=== PATIENT | female | born 1970 | race Caucasian/White ===

== ENCOUNTER 2019-07-13 06:11 | Emergency (ER) | payer MEDICARE, MEDICAID, SELFPAY ==
--- NOTE | ~2019-07-13 | XR_ITS ---
XR lumbar spine 2-3V DATE: 07/13/2019 07:01 INDICATION: Back pain TECHNIQUE: AP, lateral, coned lateral lumbosacral views COMPARISON: None FINDINGS: No fracture or bone destruction is evident. The included lower thoracic and lumbar pedicles are intact. Lumbar and lumbosacral interspaces are well preserved. The sacroiliac joints are normal. IMPRESSION: No significant abnormality Reviewed, dictated and finalized at location A. IMPRESSION: No significant abnormality
[2019-07-13 06:22] VITALS: BP 112/70; PULSE 87; RESP 16; TEMP 36.3; O2SAT 100
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
[2019-07-13] MEDS: IBUPROFEN 600 MG TABLET PO (06:39)
[2019-07-13] MEDS: CYCLOBENZAPRINE HCL 10 MG TABLET PO (06:41)
[2019-07-13 07:21] LABS: Add Urine Microscopic? YES; Appearance Urine Clear (Clear); Bacteria Urine Trace /hpf; Bilirubin Urine Negative (Negative); Blood Urine 1+ (Negative); Color Urine Yellow (Yellow); Glucose Urine UA Negative (Negative); Ketones Urine Negative (Negative); Leukocyte Esterase Ur Trace LEU/UL (Negative); Mucus Urine Few /lpf; Nitrate Urine Negative (Negative); Protein Urine 1+ mg/dL (Negative); Specific Grav Ur 1.026 (1.001-1.035); Squamous Epithelial Cell Urine Many /hpf (Few); Urobilinogen Urine Negative mg/dL (<2.0)
[2019-07-13 08:07] VITALS: BP 105/61; PULSE 67; RESP 20; O2SAT 97
== END 2019-07-13 08:09 | disposition home or self-care (01) ==
PROVIDERS: Emergency Provider General Practice
DX: S39.012A Strain of muscle, fascia and tendon of lower back, initial encounter (principal); F17.200 Nicotine dependence, unspecified, uncomplicated; R82.998 Other abnormal findings in urine; V43.53XA Car driver injured in collision with pick-up truck in traffic accident, initial encounter
CPT/HCPCS: 72100; 81001; 81025; 87086; 87088; 99283; A9270

== ENCOUNTER 2019-11-06 11:09 | Emergency (ER) | payer MEDICARE, MEDICAID, SELFPAY ==
[2019-11-06 11:12] VITALS: BP 101/56; PULSE 56; RESP 18; TEMP 36.7; O2SAT 99
--- NOTE | 2019-11-06 11:24 | PC.NURSE ---
Pt ambulatory to ED RM 3. Pt reports I didn't really want to come here, my dad made me. Father has left the facility, but told poultry farmer egg that the patient has a hx of bipolar d.o. and schizophrenia and has been off her medications. Pt is exhibiting paranoid behavior, states i don't feel safe being at the hosptial and I'm not going to put on a gown just to talk to someone .
--- NOTE | 2019-11-06 11:44 | ED.PSYCH ---
HPI - Psych General Chief Complaint: Psychiatric Symptoms <Brittney Brian MD - Last Filed: 11/10/19 06:55> Stated Complaint: request mental health help <Brittney Brian MD - Last Filed: 11/10/19 06:55> Time Seen by Provider: 11/06/19 11:29 <Brittney Brian MD - Last Filed: 11/10/19 06:55> History of Present Illness HPI Narrative: Patient brought into the ED by her father for psych issues. She is slow to speak, poor eye contact, delusional. She says she does not want to stay here in [facility] , she denies hallucinations and delusions, she denies suicidal and homicidal ideation. She keeps repeating that she has never had a woman physician before. She said she cannot stay here with all these women taking care of her. Her only surgery was a repair surgery after vaginal delivery. She denies smoking,, denies drug. She said she has not been sick recently. She said she had a headache when she came in but not now. <Brittney Brian MD - Last Filed: 11/10/19 06:55> MD complaint: altered mental status <Brittney Brian MD - Last Filed: 11/10/19 06:55> Related Data Home Medications: Home Medications Medication Instructions Recorded Confirmed levothyroxine 175 mcg PO DAILY 11/06/19 linaclotide [Linzess] 145 mcg PO USEASDIRECTD 11/06/19 lorazepam 1 mg PO BID PRN 11/06/19 quetiapine 100 mg PO HS 11/06/19 ziprasidone HCl [Geodon] 20 mg PO BID 11/06/19 <Brittney Brian MD - Last Filed: 11/10/19 06:55> Allergies/Adverse Reactions: Allergies Allergy/AdvReac Type Severity Reaction Status Date / Time No Known Allergies Allergy Unverified 11/06/19 11:34 <Brittney Brian MD - Last Filed: 11/10/19 06:55> Review of Systems Review of Systems: Narrative: CONSTITUTIONAL: Denies fever, chills, or sweats. EYES: Denies visual changes, redness, or discharge. ENT: Denies rhinorrhea, congestion, sore throat, or otalgia. CARDIOVASCULAR: Denies chest pain, palpitations, or edema. RESPIRATORY: Denies cough or dyspnea. GASTROINTESTINAL: Denies abdominal pain, nausea, vomiting, or diarrhea. GENITOURINARY: Denies dysuria or hematuria. SKIN: Denies rash or itching. MUSCULOSKELETAL: Denies back pain, joint pain, or myalgia. NEUROLOGIC: Denies headache, numbness, or weakness. PSYCHIATRIC: Denies anxiety or depression. <Brittney Brian MD - Last Filed: 11/10/19 06:55> [facility] Past Medical History Medical History: Medical History (Updated 11/06/19 @ 19:54 by Brittney Brian MD) Psychosis <Brittney Brian MD - Last Filed: 11/10/19 06:55> Social History Social History: Social History (Updated 11/06/19 @ 11:48 by Brittney Brian MD) Smoking status: Never smoker Alcohol intake: current Substance use: never Gender identity (if verbalized by the patient): Female <Brittney Brian MD - Last Filed: 11/10/19 06:55> Exam Const: General: no acute distress and alert <Brittney Brian MD - Last Filed: 11/10/19 06:55> Course Course Emergency Course: Patient comfortably laying on the bed had multiple minor complaints ,she states that her anxiety has much improved and she does feel comfortable going home. I did advise her to wait for the counselor for reevaluation. <Martin Corrales MD - Last Filed: 11/07/19 18:02> Patient's care turned over myself at shift change. Seen and evaluated by myself. Agree with initial H&P Patient currently being evaluated by [facility] crisis pyrometallurgical engineer. At this time it is felt that the patient requires inpatient treatment and petition was again filled out. Patient is currently paranoid states she has been out of her medication for the past 5 days. Concern of patient caring for herself Patient requesting her evening dose of medication. States is on Seroquel 100 mg. States she is on Geodon as well but in reviewing notes he had recently filled and secondary to a possible of QT prolongation together I will hold the Geodon. Patient is also on At
[2019-11-06 11:53] LABS: Basophils Percent Auto 0.9 % (0.2-1.2); Eosinophils Percent Auto 0.6 % (0-4.4); Hematocrit 34.4 % (37.0-47.0); Hemoglobin 11.5 g/dL (12.0-15.0); Lymphocytes Absolute Auto 1.12 K/mm3 (0.9-3.2); Lymphocytes Percent Auto 32.8 % (18.3-44.2); Mean Corpuscular HGB Conc 33.4 g/dl (32-36); Mean Corpuscular Volume 92.7 fl (80-100); Mean Platelet Volume 11.3 fl (7.4-10.4); Monocytes Absolute Auto 0.2 K/mm3 (0.1-0.6); Monocytes Percent Auto 6.7 % (2.6-8.5); Platelet Count Result 172 k/mm3 (150-375); Red Blood Count 3.71 M/mm3 (4.2-5.4); Red Cell Distribution Width 11.4 % (11.5-14.5); White Blood Count 3.4 K/mm3 (4.5-10.0)
--- NOTE | 2019-11-06 11:56 | PC.NURSE ---
PT ESCALATING WHEN ASKED TO REMOVE RINGS AND OTHER JEWELRY. I SPOKE WITH CHILD SUPPORT CASE OFFICER FRANCIS WHO HAS OKAYED PT TO KEEP HER NECKLACES, RINGS, AND GLASSES ON. EDP SHA INFORMED STATES THAT SHE WILL PLACE ORDER FOR HALDOL AND ATIVAN.
[2019-11-06 12:06] LABS: Ethanol < 10 mg/dL (<10)
[2019-11-06 12:07] LABS: Alanine Aminotransferase 11 U/L (4-35); Albumin Level 4.3 g/dL (3.5-5.1); Alkaline Phosphatase 66 U/L (38-126); Aspartate Amino Transferase 22 U/L (14-36); Bilirubin,Total 0.4 mg/dL (0.2-1.3); Blood Urea Nitrogen 7 mg/dL (7-17); Carbon Dioxide 28 mmol/L (22-30); Chloride 101 mmol/L (98-107); Estimated CRCL calculation 81 ml/min; Estimated Glomerular Filt Rate > 60; Glucose 105 mg/dL (65-105); Potassium 3.9 mmol/L (3.4-5.0); Sodium 137 mmol/L (137-145)
--- NOTE | 2019-11-06 12:09 | PC.NURSE ---
ERP VERBAL ORDER FOR 2MG IM ATIVAN AT THIS TIME FOR PT INCREASING ANXIETY LEVEL. LUNCH TRAY ORDERED AT MD DALTON'S REQUEST.
--- NOTE | 2019-11-06 12:18 | PC.NURSE ---
AFTER ASKING FOR ATIVAN, PT NOW REFUSING MEDS BECAUSE SHE STATES THAT SHE ONLY USES IT AT NIGHT.
--- NOTE | 2019-11-06 12:26 | PC.NURSE ---
PT OUT OF ROOM, ATTEMPTING TO LEAVE, GETTING VERBALLY AGGRESSIVE WITH STAFF STATING THAT WE'RE ALL A BUNCH OF KIDS. VERBAL ORDER FROM SHA TO GO AHEAD AND GIVE THE ATIVAN WELL 5MG HALDOL IM.
[2019-11-06] MEDS: HALOPERIDOL LACTATE 5 MG/ML VIAL (12:27)
[2019-11-06 12:35] LABS: Add Urine Microscopic? YES; Appearance Urine Clear (Clear); Bilirubin Urine Negative (Negative); Blood Urine 3+ (Negative); Color Urine Yellow (Yellow); Glucose Urine UA Negative (Negative); Ketones Urine Negative (Negative); Leukocyte Esterase Ur Negative LEU/UL (Negative); Mucus Urine Few /lpf; Nitrate Urine Negative (Negative); Protein Urine Negative (Negative); RBC Urine >75 /hpf (0-2); Specific Grav Ur 1.011 (1.001-1.035); Squamous Epithelial Cell Urine Rare /hpf (Few); Urobilinogen Urine Negative mg/dL (<2.0); WBC Urine 0-3 /hpf
[2019-11-06 12:37] LABS: Thyroid Stimulating Hormone < 0.015 uIU/mL (0.465-4.680)
[2019-11-06 12:41] LABS: Amphetamine Screen Urine Negative (Negative); Barbiturate Screen Urine Negative (Negative); Benzodiazepines Screen Urine Negative (Negative); Cannabinoid Screen Urine Negative (Negative); Cocaine Screen Urine Negative (Negative); Methadone Screen Urine Negative (Negative); Opiate Screen Urine Negative (Negative); Phencyclidine Screen Urine Negative (Negative)
--- NOTE | 2019-11-06 12:52 | PC.NURSE ---
FOOD TRAY HAS ARRIVED, PT EATING. VERBAL ORDER FOR 1G TYLENOL PO STAT FOR PT HEADACHE.
[2019-11-06] MEDS: ACETAMINOPHEN 500 MG TABLET 1000 MG PO (13:01)
[2019-11-06 14:54] LABS: Free T4 Free Thyroxine 1.43 ng/mL (0.78-2.19)
[2019-11-06] MEDS: LEVOTHYROXINE SODIUM 100 MCG, LEVOTHYROXINE SODIUM 75 MCG 175 MCG PO (15:08)
--- NOTE | 2019-11-06 15:18 | PC.NURSE ---
PT MEDICALLY CLEARED AT THIS TIME BY OSMAR DALTON.
--- NOTE | 2019-11-06 17:04 | PC.NURSE ---
CALLED FOR PT MEAL AT THIS TIME.
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
--- NOTE | 2019-11-06 18:01 | PC.NURSE ---
REP HERNANDEZ HAS ARRIVED FROM CRISIS FOR EVAL.
--- NOTE | 2019-11-06 18:43 | PC.NURSE ---
ROSIBEL FROM CRISIS HAS DECIDED THAT PT NEEDS TO BE PLACED, PT IS VOLUNTARY AT THIS TIME. SHE IS CALLING OUT TO SEE ABOUT PLACEMENT.
--- NOTE | 2019-11-06 19:09 | PC.NURSE ---
REPORT GIVEN TO MELISA MEDRANO AT THIS TIME, SHE HAS ASSUMED PT CARE.
[2019-11-06 20:15] VITALS: BP 99/70; PULSE 65; RESP 15; TEMP 36.9; O2SAT 100
--- NOTE | 2019-11-06 21:05 | PC.NURSE ---
Spoke with Shirley from [facility], no beds at this time but recall at 09:15 for possible openings
[2019-11-06] MEDS: QUEtiapine FUMARATE 100 MG TABLET PO (22:51)
[2019-11-06] MEDS: LORazepam 1 MG TABLET PO (23:04)
[2019-11-07 02:00] VITALS: BP 102/63; PULSE 68; RESP 18; TEMP 36.8; O2SAT 100
[2019-11-07] MEDS: LORazepam 1 MG TABLET PO ×2 (03:11→22:51)
[2019-11-07] MEDS: NICOTINE (*PBKC) 14 MG PATCH 1 PATCH TRANSDERM ×2 (03:11→23:00)
--- NOTE | 2019-11-07 03:16 | PC.NURSE ---
0300 patient anxious attempting to leave room to get fresh air patient reminded that she is to stay in room- Dr Quinonez made aware-
--- NOTE | 2019-11-07 03:37 | PC.NURSE ---
Patient agitated, wants to walk around the ER/or go outside -explained that she was unable to do either of those things. Then patient started c/o that I'm all bound up inside and I need something to make me go Patient states that it has been 3 days for last BM but I haven't been eating . Patient stating that her belly hurts Patient continues to wear her sunglasses, all her jewelry and hair ties (ok'd per day shift)
[2019-11-07] MEDS: MAGNESIUM CITRATE 300 ML BTL PO (03:49)
--- NOTE | 2019-11-07 06:10 | PC.NURSE ---
Recieved call from [facility]-they said they faxed for additional information (fax never received) they will refax needed list
--- NOTE | 2019-11-07 06:59 | PC.NURSE ---
Refaxed information that [facility] required
[2019-11-07 07:45] VITALS: BP 117/58; PULSE 86; RESP 16; TEMP 37; O2SAT 100
[2019-11-07] MEDS: DICYCLOMINE HCL 10 MG CAPSULE 20 MG PO (08:02)
--- NOTE | 2019-11-07 08:39 | PC.NURSE ---
PT IS REFUSING THE EKG THAT [facility] IS REQUESTING. PT WAS MADE AWARE THAT THIS REFUSAL WILL DELAY HER POTENTIAL ACCEPTANCE AND TRANSFER TO FACILITY
[2019-11-07 08:55] LABS: Magnesium 2.4 mg/dL (1.6-2.3)
[2019-11-07] MEDS: LEVOTHYROXINE SODIUM 100 MCG, LEVOTHYROXINE SODIUM 75 MCG 175 MCG PO (11:00)
[2019-11-07] MEDS: NICOTINE (*PBKC) 14 MG PATCH 1 PATCH (13:08)
[2019-11-07] MEDS: MAGNESIUM HYDROXIDE SUSP 30 ML UDC PO (13:08)
[2019-11-07 14:00] VITALS: BP 109/69; PULSE 58; RESP 16; TEMP 37.1; O2SAT 98
--- NOTE | 2019-11-07 19:37 | PC.NURSE ---
Assumed care of pt from MELISA Mccormick. Pt currently being evaluated by Aicha.
--- NOTE | 2019-11-07 20:42 | PC.NURSE ---
report given to juvenal Watson.
--- NOTE | 2019-11-07 20:45 | PC.NURSE ---
Patient moved into room 15. Patient report received-assumed care. Sitter at doorway. Patient not happy about her new room
[2019-11-07] MEDS: QUEtiapine FUMARATE 100 MG TABLET PO (22:51)
[2019-11-08 01:32] VITALS: BP 101/59; PULSE 83; RESP 18; TEMP 36.7; O2SAT 99
[2019-11-08 07:53] VITALS: BP 100/68; PULSE 92; RESP 18; TEMP 36.8; O2SAT 99
--- NOTE | 2019-11-08 07:54 | PC.NURSE ---
Assumed care of pt from Shirley. Pt resting on stretcher. Sitter at bedside
--- NOTE | 2019-11-08 07:55 | PC.NURSE ---
Stefanie called and asked for EKG. Pt adamantly refusing EKG stating theres nothing wrong with my heart, I dont need it I explained that this facility will not take her without it and she was ok with that.
[2019-11-08] MEDS: LEVOTHYROXINE SODIUM 100 MCG, LEVOTHYROXINE SODIUM 75 MCG 175 MCG PO (09:01)
[2019-11-08 11:22] VITALS: BP 100/66; PULSE 76; RESP 17; TEMP 36.9; O2SAT 99
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
--- NOTE | 2019-11-08 15:38 | ECG_ITS ---
Measurements Intervals [place] Rate: 78 P: 54 MI: 146 QRS: 14 QRSD: 85 T: 29 QT: 373 QTc: 427 Interpretive Statements SINUS RHYTHM MINIMAL Q WAVES- HIGH LATERAL LEADS BORDERLINE ECG Electronically Signed On 11-08-2019 15:50:48 CDT by Antony Ricks D.O.
[2019-11-08 17:02] VITALS: BP 101/71; PULSE 87; RESP 18; TEMP 37.2; O2SAT 100
--- NOTE | 2019-11-08 17:12 | PC.NURSE ---
EKG and VS faxed to [facility] per their request.
--- NOTE | 2019-11-08 19:48 | PC.NURSE ---
Pt out in hallway, talking to the sitter. Told patient she needed to go back into the room. she stated she needed to use the bathroom. Told patient for her safety, someone needed to stand with foot in door for safety. well, i can just hold it for 14 days, or I will pee on the l floor .
--- NOTE | 2019-11-08 19:52 | PC.NURSE ---
Talked to [facility] psych unit. They stated that they had patients packet but have yet to review it. They will call us when they do.
[2019-11-08] MEDS: LORazepam 1 MG TABLET PO (22:04)
[2019-11-08] MEDS: QUEtiapine FUMARATE 100 MG TABLET PO (23:06)
--- NOTE | 2019-11-08 23:32 | PC.NURSE ---
This nurse called Crisis and spoke with Zamzam, and informed her that the patient needs a new involuntary form filled out on patient. Zamzam stated she will have the workers' compensation commissioner who is coming out to evaluate another patient, she will have him fill one out on the patient as well. workforce development program director notified.
--- NOTE | 2019-11-08 23:54 | PC.NURSE ---
Received report from MELISA Garcia. Assumed care of patient at this time.
--- NOTE | 2019-11-09 01:42 | PC.NURSE ---
Re-faxed patient's involuntary form to [facility] at this time.
--- NOTE | 2019-11-09 05:43 | PC.NURSE ---
Patient attempted to leave ED through ambulance doors. Patient escorted back to room by dictaphone technician. Security called. Patient back in room. Sitter at bedside. ERP Dr. Diaz notified.
--- NOTE | 2019-11-09 06:20 | PC.NURSE ---
Patient refusing repeat VS.
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
[2019-11-09] MEDS: HALOPERIDOL LACTATE 5 MG/ML VIAL IM (07:17)
[2019-11-09] MEDS: diphenhydrAMINE HCl INJ 50 MG/ML VIAL 25 MG IM (07:17)
--- NOTE | 2019-11-09 07:26 | PC.NURSE ---
Patient report given to MELISA Christianson.
--- NOTE | 2019-11-09 07:38 | PC.NURSE ---
Called for breakfast tray.
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
--- NOTE | 2019-11-09 09:01 | PC.NURSE ---
Aci[facility] called asked to refax information to [facility]. was accepted 11/07/2019 but no beds available. [facility] advised they would call back when they have a room and have not called the ED yet. Faxed information to [facility].
--- NOTE | 2019-11-09 09:04 | PC.NURSE ---
Pt. refused vitals at this time. Currently combative. Sitter and security at bedside.
[2019-11-09 09:06] VITALS: RESP 18
[2019-11-09 11:19] VITALS: BP 102/63; PULSE 52; RESP 14; TEMP 37.1; O2SAT 97
--- NOTE | 2019-11-09 16:24 | PC.NURSE ---
1530 spoke with pts father on the phone and he knows she is going to [facility] he is not happy about it reassured him she would get tx there she needed [facility] arrived to transport pt all pt belongs and her jewelry sent with pt to [facility]
== END 2019-11-09 16:30 ==
PROVIDERS: Emergency Medicine; Family Medicine; Emergency Provider Emergency Medicine
DX: F29 Unspecified psychosis not due to a substance or known physiological condition (principal); Z79.899 Other long term (current) drug therapy; R94.31 Abnormal electrocardiogram [ECG] [EKG]
CPT/HCPCS: 36415; 80053; 80307; 81001; 81025; 83735; 84439; 84443; 85025; 93005; 96372; 99285; A9270; J1200; J1630; J2060

== ENCOUNTER 2022-01-15 15:21 | Emergency (ER) | payer OTHER, SELFPAY ==
[2022-01-15 15:33] VITALS: BP 102/71; PULSE 101; RESP 18; TEMP 36.6; O2SAT 100
--- NOTE | 2022-01-15 16:11 | ED.FEMALEGU ---
HPI - Female Genitourinary General Chief complaint: Urogenital-Female Stated complaint: uti Time Seen by Provider: 01/15/22 16:27 Source: patient and RN notes reviewed Mode of arrival: ambulatory Limitations: no limitations History of Present Illness HPI Narrative: 51-year-old female presents with concern for urinary tract infection. She reports today she began having dysuria, frequency, urgency, mild low back pain. She reports she has been drinking a lot of caffeine. She reports she has had an urinary tract infection in May and was told to cut down on those things. She denies fever, body aches, chills, sweats, nausea, vomiting. MD elicited complaint: UTI Related Data Home Medications Medication Instructions Recorded Confirmed levothyroxine 175 mcg tablet 175 mcg PO DAILY 11/06/19 linaclotide 145 mcg capsule 145 mcg PO USEASDIRECTD 11/06/19 (Linzess) lorazepam 0.5 mg tablet 1 mg PO BID PRN Anxiety 11/06/19 quetiapine 100 mg tablet 100 mg PO HS 11/06/19 ziprasidone HCl 20 mg capsule 20 mg PO BID 11/06/19 (Geodon) Allergies Allergy/AdvReac Type Severity Reaction Status Date / Time No Known Allergies Allergy Unverified 12/05/19 09:34 Review of Systems Review of Systems: CONSTITUTIONAL: Denies malaise, chills, sweats, or fever. CARDIOVASCULAR: Denies chest pain, palpitations, or edema. RESPIRATORY: Denies cough or dyspnea. GASTROINTESTINAL: Denies abdominal pain, nausea, vomiting, diarrhea GENITOURINARY: Reports dysuria, frequency, urgency, suprapubic pressure. Denies flank pain or hematuria. SKIN: Denies rash or itching. MUSCULOSKELETAL: Denies back pain or myalgia. All systems reviewed & are unremarkable except as noted in HPI and below PMFSH Past Medical History Medical History (Updated 01/15/22 @ 16:34 by Estrella Leo NP) Psychosis Family History Family History (System 12/05/19 @ 09:34 by Melodie Gan) Mother Diabetes mellitus Hypertension Cerebrovascular accident Father Cerebrovascular accident Grandparent Carcinoma of colon Family history of lung cancer Family history of malignant neoplasm of brain Family history of colonic diverticulitis Social History Social History (System 12/05/19 @ 09:34 by Melodie R. Vandever) Smoking status: Never smoker Second hand tobacco smoke exposure: No Alcohol intake: current Substance use: never Gender identity (if verbalized by the patient): Female Comments At time of signature, agree with nursing past medical, surgical, social and family history. There is no relevant family history pertinent to the presenting complaint Exam Narrative: GENERAL: Well-appearing, well-nourished, and in no acute distress. HEAD: Normocephalic. EYES: PERRLA, conjunctivae clear. NECK: Supple. No lymphadenopathy CHEST: Clear to auscultation. No respiratory distress. HEART: Regular rate and rhythm. ABDOMEN: Soft, nontender upon palpation, nondistended, normal active bowel sounds, no palpable or pulsatile masses, no guarding. No CVA tenderness SKIN: Warm, dry, no rash. NEURO: Alert and oriented x3. PSYCH: Normal mood and affect Course Course Emergency Course: Patient is aware of diagnosis, understands and agrees to treatment plan. Anticipatory guidance given. Patient agrees to follow-up as directed and is aware of reasons to seek care at the emergency department. Portions of this record may have been created with voice recognition software Level of Care: Express Care Visit Vital Signs Vital signs: Vital Signs Temperature 97.8 F 01/15/22 15:33 Pulse Rate 101 H 01/15/22 15:33 Respiratory Rate 18 01/15/22 15:33 Blood Pressure 102/71 01/15/22 15:33 Pulse Oximetry 100 01/15/22 15:33 Oxygen Delivery Room Air 01/15/22 15:33 Temperature 97.8 F 01/15/22 15:33 Pulse Rate 101 H 01/15/22 15:33 Respiratory Rate 18 01/15/22 15:33 Blood Pressure 102/71 01/15/22 15:33 Pulse Oximetry 100 01/15/22
== END 2022-01-15 16:38 | disposition home or self-care (01) ==
PROVIDERS: Emergency Provider Nurse Practitioner
DX: N39.0 Urinary tract infection, site not specified (principal)
CPT/HCPCS: 81003; 87077; 87086; 87186; 99213; G0463

== ENCOUNTER 2022-07-15 16:20 | Outpatient (CLI) | payer OTHER, SELFPAY ==
[2022-07-15 18:06] LABS: Eosinophils Absolute Auto 0.1 K/mm3 (0-0.3); Eosinophils Percent Auto 1.5 % (0-4.4); Hematocrit 35.1 % (37.0-47.0); Hemoglobin 11.1 g/dL (12.0-15.0); Immature Granulocyte Absolute 0.01 K/mm3 (0.00-0.031); Immature Granulocyte Percent A 0.3 % (0-0.5); Lymphocytes Absolute Auto 2.14 K/mm3 (0.9-3.2); Lymphocytes Percent Auto 54.9 % (18.3-44.2); Mean Corpuscular HGB Conc 31.6 g/dl (32-36); Mean Corpuscular Volume 91.6 fl (80-100); Mean Platelet Volume 11.3 fl (7.4-10.4); Monocytes Absolute Auto 0.3 K/mm3 (0.1-0.6); Monocytes Percent Auto 7.2 % (2.6-8.5); Neutrophils Absolute Auto 1.4 K/mm3 (1.3-6.7); Neutrophils Percent Auto 35.1 % (45.5-73.1); Platelet Count Result 215 k/mm3 (150-375); Red Blood Count 3.83 M/mm3 (4.2-5.4); Red Cell Distribution Width 12.7 % (11.5-14.5); White Blood Count 3.9 K/mm3 (4.5-10.0)
[2022-07-15 18:22] LABS: Alanine Aminotransferase 15 U/L (6-35); Albumin Level 4.3 g/dL (3.5-5.1); Alkaline Phosphatase 65 U/L (38-126); Anion Gap 3 mmol/L (8-16); Aspartate Amino Transferase 24 U/L (14-36); Bilirubin,Total 0.4 mg/dL (0.2-1.3); Blood Urea Nitrogen 10 mg/dL (7-17); Calcium 8.9 mg/dL (8.4-10.2); Carbon Dioxide 29 mmol/L (22-30); Chloride 100 mmol/L (98-107); Estimated Glomerular Filt Rate > 60; Glucose 107 mg/dL (65-110); Potassium 4.3 mmol/L (3.4-5.0); Sodium 132 mmol/L (137-145)
[2022-07-21 09:43] LABS: Carbamazepine Tegretol <0.2 mcg/mL (4.0-12.0)
== END 2022-07-15 16:21 | disposition home or self-care (01) ==
PROVIDERS: Visit Provider Internal Medicine Pulmonary Disease
DX: F25.9 Schizoaffective disorder, unspecified (principal)
CPT/HCPCS: 36415; 80053; 80156; 85025

== ENCOUNTER 2022-10-08 16:41 | Outpatient (CLI) | payer OTHER, SELFPAY ==
[2022-10-08 17:09] LABS: Basophils Percent Auto 1.5 % (0.2-1.2); Eosinophils Percent Auto 1.2 % (0-4.4); Hematocrit 31.9 % (37.0-47.0); Hemoglobin 10.1 g/dL (12.0-15.0); Lymphocytes Percent Auto 34.6 % (18.3-44.2); Mean Corpuscular HGB Conc 31.7 g/dl (32-36); Mean Corpuscular Hemoglobin 29.1 pg (26-34); Mean Corpuscular Volume 91.9 fl (80-100); Mean Platelet Volume 10.9 fl (7.4-10.4); Monocytes Absolute Auto 0.4 K/mm3 (0.1-0.6); Monocytes Percent Auto 13.8 % (2.6-8.5); Neutrophils Absolute Auto 1.3 K/mm3 (1.3-6.7); Neutrophils Percent Auto 48.9 % (45.5-73.1); Platelet Count Result 149 k/mm3 (150-375); Red Blood Count 3.47 M/mm3 (4.2-5.4); Red Cell Distribution Width 12.7 % (11.5-14.5); White Blood Count 2.6 K/mm3 (4.5-10.0)
[2022-10-08 17:18] LABS: Alanine Aminotransferase 16 U/L (6-35); Alkaline Phosphatase 70 U/L (38-126); Anion Gap 6 mmol/L (8-16); Aspartate Amino Transferase 24 U/L (14-36); Bilirubin,Total 0.2 mg/dL (0.2-1.3); Blood Urea Nitrogen 8 mg/dL (7-17); Calcium 8.5 mg/dL (8.4-10.2); Carbon Dioxide 25 mmol/L (22-30); Chloride 103 mmol/L (98-107); Cholesterol 152 mg/dL (0-200); Estimated Glomerular Filt Rate > 60; Glucose 104 mg/dL (65-110); HDL Direct 59 mg/dL; Potassium 3.8 mmol/L (3.4-5.0); Sodium 134 mmol/L (137-145); Triglycerides 97 mg/dL (<150)
[2022-10-08 17:29] LABS: LDL Cholesterol Direct 66 mg/dL
[2022-10-08 17:48] LABS: Thyroid Stimulating Hormone < 0.015 uIU/mL (0.465-4.680)
== END 2022-10-08 16:42 | disposition home or self-care (01) ==
LOC: ANHLAB 16:49
PROVIDERS: Visit Provider Physician Assistant
DX: E03.9 Hypothyroidism, unspecified (principal); R53.83 Other fatigue; E78.2 Mixed hyperlipidemia
CPT/HCPCS: 36415; 80053; 80061; 83036; 84443; 85025

== ENCOUNTER 2023-10-19 03:10 | Emergency (ER) | payer OTHER, SELFPAY ==
[2023-10-19 03:09] VITALS: BP 124/82; PULSE 68; RESP 16; TEMP 36.7; O2SAT 98
[2023-10-19 03:13] VITALS: RESP 18; O2SAT 99
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
[2023-10-19 04:16] LABS: Basophils Absolute Auto 0.1 K/mm3 (0.0-0.1); Basophils Percent Auto 1.1 % (0.2-1.2); Eosinophils Absolute Auto 0.1 K/mm3 (0-0.3); Eosinophils Percent Auto 1.3 % (0-4.4); Hematocrit 32.8 % (37.0-47.0); Hemoglobin 10.6 g/dL (12.0-15.0); Lymphocytes Absolute Auto 1.91 K/mm3 (0.9-3.2); Lymphocytes Percent Auto 40.5 % (18.3-44.2); Mean Corpuscular HGB Conc 32.3 g/dl (32-36); Mean Corpuscular Hemoglobin 30.3 pg (26-34); Mean Corpuscular Volume 93.7 fl (80-100); Mean Platelet Volume 11.1 fl (7.4-10.4); Monocytes Absolute Auto 0.5 K/mm3 (0.1-0.6); Monocytes Percent Auto 9.7 % (2.6-8.5); Neutrophils Absolute Auto 2.2 K/mm3 (1.3-6.7); Neutrophils Percent Auto 47.4 % (45.5-73.1); Platelet Count Result 166 k/mm3 (150-375); Red Cell Distribution Width 11.9 % (11.5-14.5); White Blood Count 4.7 K/mm3 (4.5-10.0)
[2023-10-19 04:27] LABS: Alanine Aminotransferase 16 U/L (6-35); Albumin Level 4.2 g/dL (3.5-5.1); Alkaline Phosphatase 71 U/L (38-126); Anion Gap 7 mmol/L (4-12); Aspartate Amino Transferase 24 U/L (14-36); Bilirubin,Total 0.5 mg/dL (0.2-1.3); Blood Urea Nitrogen 11 mg/dL (7-17); Calcium 9.2 mg/dL (8.4-10.2); Carbon Dioxide 27 mmol/L (22-30); Chloride 104 mmol/L (98-107); Estimated CRCL calculation 82 ml/min; Estimated Glomerular Filt Rate > 60; Glucose 97 mg/dL (65-110); Potassium 3.7 mmol/L (3.4-5.0); Sodium 138 mmol/L (137-145)
[2023-10-19 04:37] LABS: Ethanol < 10 mg/dL (<10)
--- NOTE | 2023-10-19 04:54 | PC.NURSE ---
0454: pt attempted to give urine sample but states I messed up, I forgot to take the lid off. RN gave pt another cup of water and will try again in 30 minutes.
[2023-10-19 05:25] LABS: Thyroid Stimulating Hormone Reflex < 0.015 uIU/mL (0.465-4.68)
[2023-10-19 06:19] LABS: Free T4 Free Thyroxine Reflex 1.93 ng/dL (0.78-2.19)
[2023-10-19 07:07] LABS: Total Triiodothyronine (T3) 1.57 NG/ML (0.97-1.69)
[2023-10-19 08:38] LABS: Amphetamine Screen Urine Negative (Negative); Barbiturate Screen Urine Negative (Negative); Benzodiazepines Screen Urine Negative (Negative); Cannabinoid Screen Urine Negative (Negative); Cocaine Screen Urine Negative (Negative); Methadone Screen Urine Negative (Negative); Opiate Screen Urine Negative (Negative); Phencyclidine Screen Urine Negative (Negative)
[2023-10-19 08:49] LABS: Appearance Urine Clear (Clear); Bacteria Urine None Seen /hpf; Bilirubin Urine Negative (Negative); Blood Urine Negative (Negative); Color Urine Yellow (Yellow); Glucose Urine UA Negative (Negative); Ketones Urine Trace mg/dL (Negative); Leukocyte Esterase Ur Trace LEU/UL (Negative); Need Manual Microscopic Reviewed; Nitrate Urine Negative (Negative); Non Pathogenic Casts 0-2; Protein Urine Negative (Negative); RBC Urine 0-2 /hpf (0-2); Specific Grav Ur 1.004 (1.001-1.035); Squamous Epithelial Cell Urine None Seen /hpf (Few); Urobilinogen Urine 0.2 mg/dL (<2.0); WBC Urine 0-5 /hpf (0-3)
[2023-10-19 08:50] LABS: Add Urine Microscopic? YES
[2023-10-19 10:43] LABS: Influenza A QL RT-PCR Negative (Negative); Influenza B QL RT-PCR Negative (Negative); RSV RNA, RT-PCR Negative (Negative); SARS-CoV-2 RNA PCR Negative (Negative)
--- NOTE | 2023-10-19 11:00 | PC.NURSE ---
PT WALKED OUT OF HER ROOM AND AGGRESSIVELY PULLED BACK CURTAIN AND GLASS DOOR OF ROOM 10 WHILE THE OTHER PT WAS HAVING A PROCEDURE COMPLETED. NADER WAS TOLD THAT WAS INAPPROPRIATE AND TO IMMEDIATELY GO BACK INTO HER ROOM. SITTER REMAINS AT BEDSIDE TO MONITOR
--- NOTE | 2023-10-19 13:00 | PC.NURSE ---
PT BECOMING AGITATED IN ROOM. OFFERED A SHOT OR PILL TO HELP HER TO RELAX. REQUESTED A PILL. DR PERALTA MADE AWARE. AWAITING ORDERS
[2023-10-19] MEDS: LORazepam (*CRX) 1 MG TABLET PO (13:40)
--- NOTE | 2023-10-19 13:45 | PC.NURSE ---
PT BECOMING MORE AGITATED. WALKED OUT OF ROOM AND UP TO THE CHARGE NURSE DESK. NONSENSICAL SPEECH NOTED. REDIRECTED BACK INTO HER ROOM. ATIVAN WAS ORDERED AND GIVEN. PT WAS PLACED INTO 15 WHILE AWAITING PLACEMENT. SITTER REMAINS AT BEDSIDE.
--- NOTE | 2023-10-19 15:38 | PC.NURSE ---
Pt refuses to let staff perform EKG. Pt states You're not doing that because I don't have any internal organs. I sold both my hearts. Pt refuses to get onto stretcher for multiple staff members.
--- NOTE | 2023-10-19 16:30 | PC.NURSE ---
PT IS REFUSING TO HAVE AN EKG PERFORMED. SHE STATES SHE DOESN'T HAVE A HEART SO THEREFORE DOESN'T NEED AND EKG TO CHECK IT
--- NOTE | 2023-10-19 17:00 | PC.NURSE ---
PT STILL REFUSING EKG AND A NEW SET OF VITAL SIGNS. SHE STATES SHE DOESN'T NEED THEM SINCE SHE HAS NO ORGANS IN HER BODY
--- NOTE | 2023-10-19 17:30 | PC.NURSE ---
EMS STATES THEY ARE UNABLE TO TAKE PT UP TO DIRECT ADMISSION BED UNTIL TUESDAY AFTER 1300.
[2023-10-19 19:48] VITALS: BP 109/73; PULSE 97; RESP 18; O2SAT 100
--- NOTE | 2023-10-20 03:18 | PC.NURSE ---
Around 0200 this RN went to pt room to inform her that EMS will be here around 1000 to take her to [facility] in [place]. Pt got very frustrated by this and stated to this RN I cant go there [place] ghetto and I don't want to be around people like that . Pt educated on her involuntary status. Pt then cracked the door of room 15 and was seen on camera vaping. Security confiscated vape.
--- NOTE | 2023-10-20 07:06 | PC.NURSE ---
Keily called at 0630 to update with pt transport time. [facility] to pick pt up at 1000 this morning.
--- NOTE | 2023-10-20 07:46 | PC.NURSE ---
pt ran out of ED ambulance doors. Ced MENCHACA called.
--- NOTE | 2023-10-20 08:08 | PC.NURSE ---
pt brought back into room. ED security and sitter at bedside.
[2023-10-20] MEDS: LORazepam (*CRX) 0.5 MG TABLET PO (08:47)
--- NOTE | 2023-10-20 08:49 | PC.NURSE ---
pt anxious in room and requesting for something to help her sleep. EDP Emely made aware. 0.5mg PO Ativan given.
[2023-10-20] MEDS: HALOPERIDOL LACTATE 5 MG/ML VIAL IM (09:17)
--- NOTE | 2023-10-20 09:18 | PC.NURSE ---
pt walking around the halls stating that boy in that room is not being fed and needs taken care of! I need to take care of him. pt repeatedly told that all of our patients in the department are being taken care of. pt told multiple times that she needs to return to her room. pt unable to be redirected. pt then went back into room and then pushes and knocks over sitter's side table. ED security at bedside and helps pt back into room. per Dr. Han to give 5mg Haldol IM. VORB. gave pt 5mg of Haldol in left deltoid.
[2023-10-20 09:30] VITALS: BP 100/62; PULSE 67; RESP 14; TEMP 36.4; O2SAT 100
[2023-10-20 09:38] VITALS: BP 100/62; PULSE 67; RESP 14; TEMP 36.4; O2SAT 100
[2023-10-20] MEDS: LORazepam INJ (*CRX) 2 MG/ML VIAL IM (11:00)
== END 2023-10-20 10:45 ==
PROVIDERS: Emergency Provider Emergency Medicine; PCP Physician Assistant
DX: F29 Unspecified psychosis not due to a substance or known physiological condition (principal); Z11.52 Encounter for screening for COVID-19; Z79.899 Other long term (current) drug therapy
CPT/HCPCS: 36415; 80053; 80307; 81001; 81025; 84439; 84443; 84480; 85025; 87637; 96372; 99285; A9270; J1630; J2060

== ENCOUNTER 2024-11-23 20:01 | Emergency (ER) | payer MEDICARE, SELFPAY ==
[2024-11-23 20:03] VITALS: BP 112/78; PULSE 102; RESP 29; TEMP 36.8; O2SAT 98
[2024-11-23 21:40] LABS: Hematocrit 34.0 % (37.0-47.0); Hemoglobin 10.9 g/dL (12.0-15.0); Immature Granulocyte Percent A 0.3 % (0-0.5); Lymphocytes Absolute Auto 2.32 K/mm3 (0.9-3.2); Mean Corpuscular HGB Conc 32.1 g/dl (32-36); Mean Corpuscular Hemoglobin 30.6 pg (26-34); Mean Corpuscular Volume 95.5 fl (80-100); Nucleated Red Blood Cells Absolute Auto 0.000 K/mm3 (0.0-0.012); Nucleated Red Blood Cells Perc 0.0 % (0.0-0.2); Platelet Count Result 196 k/mm3 (150-375); Red Blood Count 3.56 M/mm3 (4.2-5.4); White Blood Count 6.7 K/mm3 (4.5-10.0)
[2024-11-23 21:47] LABS: Alanine Aminotransferase 23 U/L (6-35); Albumin Level 4.1 g/dL (3.5-5.1); Alkaline Phosphatase 63 U/L (38-126); Anion Gap 8 mmol/L (4-12); Aspartate Amino Transferase 29 U/L (14-36); Bilirubin,Total 0.1 mg/dL (0.2-1.3); Blood Urea Nitrogen 9 mg/dL (7-17); Calcium 9.3 mg/dL (8.4-10.2); Carbon Dioxide 26 mmol/L (22-30); Chloride 103 mmol/L (98-107); Estimated CRCL calculation 67 ml/min; Estimated Glomerular Filt Rate > 60; Glucose 101 mg/dL (65-110); Potassium 3.6 mmol/L (3.4-5.0); Sodium 137 mmol/L (137-145); Total Protein 7.3 g/dL (6.3-8.2)
[2024-11-23 21:57] VITALS: BP 101/68; PULSE 75; RESP 16; O2SAT 96
[2024-11-23 22:18] LABS: Thyroid Stimulating Hormone Reflex 12.600 uIU/mL (0.465-4.68)
--- NOTE | 2024-11-23 22:23 | PC.NURSE ---
pt ambulatory to bathroom, unable to urinate.
--- NOTE | 2024-11-23 22:32 | ECG_ITS ---
Test Date: 2024-11-23 22:44:39 Measurements Intervals [place] Rate: 70 P: 42 NV: 177 QRS: 45 QRSD: 90 T: 52 QT: 376 QTc: 408 Interpretive Statements SINUS RHYTHM No previous ECG available for comparison Electronically Signed On 11-24-2024 18:52:20 CDT by Kieran Velasquez M.D.
[2024-11-23 22:33] LABS: SARS-CoV-2 RNA PCR Negative (Negative)
[2024-11-23 23:12] LABS: NT Pro B Type Natriuretic Pept 67 pg/mL (19.9-100)
[2024-11-24 00:36] LABS: Free T3 3.30 pg/mL (2.71-6.16)
[2024-11-24 00:53] LABS: Free T4 Free Thyroxine Reflex 0.94 ng/dL (0.78-2.19)
[2024-11-24 01:01] LABS: Total Triiodothyronine (T3) 0.98 NG/ML (0.82-1.58)
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
[2024-11-24] MEDS: LORazepam (*CRX) 1 MG TABLET PO (01:30)
--- NOTE | 2024-11-24 01:30 | PC.NURSE ---
Pt attempting to leave ED and refusing to provide urine sample. MD made aware refer to MAR for medication administration.
[2024-11-24 02:00] VITALS: BP 106/78; PULSE 80; RESP 16; TEMP 36.9; O2SAT 98
--- NOTE | 2024-11-24 02:15 | PC.NURSE ---
Attempted to obtain urine sample, pt refusing stating i dont have to go pee. Pt provided with more water.
--- NOTE | 2024-11-24 02:51 | PC.NURSE ---
This RN attempting to explain necessity of urine sample for UA. Pt at this time adamantly refusing to give a urine sample stating I will just stay in here for 2 weeks. Pt became agitated and yelling at this RN. Pt verbalizes frustration that we have not checked her blood for what kind of snake bite she has.
--- OUTSIDE RECORDS SUMMARY | 2024-11-24 04:10 | XMS_ITS ---
Author Organization [facility] Address [address] [place] [address] Care Team Providers Care Miner Placer Name Role Phone Mackenzie Fernandez Primary Care Provider REASON FOR VISIT Psych f/u Must come into office Encounters Encounter Location Date Provider Diagnosis [address] [place] [address] 12/13/2023 Mackenzie Fernandez Plan Of Treatment No Information Progress Notes * Guillermina NEGRODOB:[birth year] (54 yo F)Acc No.[id number]:12/13/2023 UNLOCKED PROGRESS NOTE Patient: Guillermina PRESCOTT Provider: Michell Fernandez :1970 A ge:53 Y S ex:Female Date:12/13/2023 Address:[id number] [place], [place] [id number] Subjective: * Chief Complaints: * 1 . Psych f/u Must come into office. * Medical History: Objective: * Vitals: Assessment: Plan: * Treatment: * * Electronic signature of Mackenzie Fernandez MD, [id number] on 11/24/2024 at 04:10 AM CDT Sign off status: Pending * Provider: Michell Fernandez Date: 12/13/2023 Generated for Cory de leon/Mitra/eTmaliksmjosh on: 11/24/2024 04:10 AM CDT
--- OUTSIDE RECORDS SUMMARY | 2024-11-24 04:11 | XMS_ITS ---
Author Organization [facility] Address [address] [place] [address] Care Team Providers Care Safety Analyst Name Role Phone Mackenzie Fernandez Primary Care Provider REASON FOR VISIT follow-up hospitalization. Must come into office Medications Medication SIG (Take, Route, Frequency, Duration) Notes Start Date End Date Status TEGretol 200 MG 1 tablet Orally daily Active QUEtiapine Fumarate 200 MG 1 tablet at b edtime Orally Once a day; Duration: 30 days Active TEGretol 200 MG 1 tablet in am, 2 in pm Orally Three times a day; Duration: 30 days Active Encounters Encounter Location Date Provider Diagnosis [address] [address] 11/29/2023 Mackenzie Fernandez Plan Of Treatment No Information Progress Notes * Guillermina NEGRODOB:[birth year] (54 yo F)Acc No.[id number]:11/29/2023 UNLOCKED PROGRESS NOTE Patient: Guillermina PRESCOTT Provider: Michell Fernandez :1970 A ge:53 Y S ex:Female Date:11/29/2023 Address:[address] [id number] Subjective: * Chief Complaints: * 1 . follow-up hospitalization. Must come into office. * Medical History: * Medications: T aking TEGretol 200 MG Tablet 1 tablet Orally daily , Taking QUEtiapine Fumarate 200 MG Tablet 1 tablet at bedtime Orally Once a day , Taking TEGretol 200 MG Tablet 1 tablet in am, 2 in pm Orally Three times a day Objective: * Vitals: Assessment: Plan: * Treatment: * Recommended Wellness and Pre vention Guidelines: * S tatus A lert L ast Done N ext Due A ction Taken N ONCOMPLIANT B reast cancer screening - 0 11/28/2023 - - N ONCOMPLIANT C ervical cancer screening - 0 11/28/2023 - - N ONCOMPLIANT C olorectal cancer screening - 0 11/28/2023 - - N ONCOMPLIANT D epression followup 0 07/06/2022 0 11/28/2023 - - N ONCOMPLIANT H IV screening - 0 11/28/2023 - - * * Electronic signature of Mackenzie Fernandez MD, [id number] on 11/24/2024 at 04:11 AM CDT Sign off status: Pending * Provider: Michell Fernandez Date: 0 11/29/2023 Generated for Cory de leon/Mitra/Isreal on: 0 11/24/2024 04:11 AM CDT
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
--- OUTSIDE RECORDS SUMMARY | 2024-11-24 04:11 | XMS_ITS | Clinical Summary ---
Author Organization [facility] Address [address] [place] [id number] Care Team Providers Care Over Hauler Helper Name Role Phone None, Provider MD Primary Care Provider Unavaila ble Allergies No known active allergies Medications ondansetron 4 MG disintegrating tablet Take 1 tablet (4 mg total) by mouth every 8 (eight) hours as needed for Nausea. 20 tablet 1 Active dicyclomine 10 MG capsule Take 1 capsule (10 mg total) by mouth 4 (four) times daily as needed. 40 capsule 1 Active Acetaminophen-Codei ne (TYLENOL/CODEINE #3) 300-30 MG tabletIndications:A cute Pain < 7 Day Supply Take 1 tablet by mouth every 4 (four) hours as needed for Pain. Indications: Acute Pain < 7 Day Supply 12 tablet 1 Active Social History Tobacco Use Types Packs/Day Years Used Date Smoking Tobacco: Every Day Cigarettes 0.5 1 Smokeless Tobacco: Never Tobacco Cessation:Ready to Q uit: No; Counseling Given: Yes Alcohol Use Standard Drinks/Week Comments Yes 0 (1 standard drink = 0.6 oz pur e alcohol) socially Comments No Sex and Gender Information Value Date Recorded Sex Assigned at Not on file Legal Sex Female 10:40 AM CDT Gender Identity Not on file Sexual Orientation Not on file Last Filed Vital Signs Vital Sign Reading Time Taken Comments Blood Pressure 131/71 12/30/2020 6:00 PM CDT Pulse 69 12/30/2020 6:00 PM CDT Temperature 36.8 C (98.3 F) 12/30/2020 11:20 AM CDT Respiratory Rate 18 12/30/2020 6:00 PM CDT Oxygen Saturation 100% 12/30/2020 6:00 PM CDT Inhaled Oxygen Concentration - - Weight 68 kg (150 lb) 12/30/2020 11:20 AM CDT Height 161.3 cm (5' 3.5) 12/30/2020 11:20 AM CD T Body Mass Index 26.15 12/30/2020 11:20 AM CDT Plan of Treatment Health Maintenance Due Date Last Done Comments Cervical Cancer Screening Pa p Smear (Age 30 to 64) Every 3 Years 1971 Colorectal Cancer Screening Colonoscopy (10 Years) 1971 Annual Physical 1974 Hepatitis C 1989 Hepatitis B Vaccines (1 of 3 - 19+ 3-dose series) 1990 Pneumococcal Vaccine: 50+ Ye ars (1 of 2 - PCV) 1990 Cervical Cancer Screening Pa p with HPV Testing (Age 30 to 64) Every 5 Years 2001 Cervical Cancer Screening with HPV 2001 DTaP, Tdap and Td Vaccines ( 1 - Tdap) 09/13/2001 09/12/2001 Mammogram Screening 2011 Zoster Vaccines (1 of 2) 2021 COVID-19 Vaccine (1 - 2023-2 5 season) 2024 Meningococcal B Vaccine Aged Out No l onger eligible based on patient's age to complete this topic Meningococcal Vaccine Aged Out No liz imtiaz eligible based on patient's age to complete this topic RSV Immunizations Under 20 Months Aged Out No longer eligible based on patient's age to complete this topic Insurance [place] [address] Care Teams Over Hauler Helper Relationship Specialty Start Date End Date None, Provider, PCP - General 12/30/20
--- OUTSIDE RECORDS SUMMARY | 2024-11-24 04:11 | XMS_ITS | Patient Health Record ---
Author Organization [facility] Address [address] [place] [address] Care Team Providers Care Medical Technicians Name Role Phone Mackenzie Fernandez Primary Care Provider [phone] Allergies No Known Allergies Reason For Referral No Information Medications Medication SIG (Take, Route, Frequency, Duration) Notes Start Date End Date Status TEGretol 200 MG 1 tablet Orally daily Active QUEtiapine Fumarate 200 MG 1 tablet at b edtime Orally Once a day; Duration: 30 days Active TEGretol 200 MG 1 tablet in am, 2 in pm Orally Three times a day; Duration: 30 days Active Social History Tobacco Use: Social History Observation Description Date Details (start date - stop date) Light tobacco s moker NA - NA Dont use, Tobacco Use/Smoking Question Answer Notes Are you a light tobacco smoker Problems Problem Type SNOMED Code ICD Code Onset Dates Problem Status W/U Status Risk Notes Problem Anxiety (02397668) Anxiety (F41.9) Active confirmed Problem Bipolar 1 disorder (086846532) Bipolar 1 disorder (F31.9) Active confirmed Problem Schizoaffective disorder (F25.9) Active confirmed Encounters Encounter Location Date Provider Diagnosis [address] [place] [address] 02/06/2024 Ari Habib [address] [place] [address] 02/24/2024 Jered Rebecca Plan Of Treatment No Information Insurance Providers Payer Name Payer Address Payer Phone Subscriber Number Group Number Insured Name Patient Relationship to Insured Coverage Start Date Coverage End Date [employer] [address] [place] [address] [id number] Guillermina Negro Self - patient is the insured 09/01/202 1 MEDICAID [address] [place] [address] [id number] Guillermina Negro Self - patient is the insured 0 1 MEDICARE PART A [address] [place] [address] [id number] Guillermina Negro Self - patient is the insured 0 1 [facility] [address] [place] [address] [id number] Guillermina Negro Self - patient is the insured 1 [employer] LCSW [address] [place] [address] [id number] Guillermina Negro Self - patient is the insured 3 [facility] [address] [place] [phone] [id number] Guillermina Negro Self - patient is the insured 1 Medical (General) History Surgical History Surgery Date(Month/Year)
--- OUTSIDE RECORDS SUMMARY | 2024-11-24 04:11 | XMS_ITS | Clinical Summary ---
Author Organization [facility] [facility] Address [address] [place] [address] Care Team Providers Care Product Development Chemist Name Role Phone Stacia Jones Primary Care Provider [phone] Allergies No known active allergies Medications LORazepam [...] BY MOUTH EVERY DAY 90 tablet 05/08/19 025 Discontinued Active Problems Problem Noted Date [...] maintain. Assessment & Plan (05/13/2022 2:38 PM ENTRY LEVEL MARKETING ASSISTANT): Weight/BMI is in healthy range. Continue healthy [...] plan Assessment & Plan (05/23/2022 10:42 PM ENTRY LEVEL MARKETING ASSISTANT): Mental health disorder. Continue per Psychiatry. Assessment [...] re-evaluate Assessment & Plan (05/23/2022 10:42 PM ENTRY LEVEL MARKETING ASSISTANT): Probably multifactorial. Check labs and followup to re-evaluate Dysuria 03/07/2020 Assessment & Plan (03/07/2020 7:45 PM ENTRY LEVEL MARKETING ASSISTANT): Pt presents with dysuria. Urine dip completed. Send urine culture. Antibiotic to pharmacy. Reviewed bladder care. Unable to pass urine 03/07/2020 Assessment & Plan (03/07/2020 7:45 PM ENTRY LEVEL MARKETING ASSISTANT): Patient states she isn't able to pass [...] needed. Assessment & Plan (05/23/2022 10:41 PM ENTRY LEVEL MARKETING ASSISTANT): Check labs Assessment & Plan (07/20/2020 7:49 [...] care. Assessment & Plan (04/19/2019 8:04 PM ENTRY LEVEL MARKETING ASSISTANT): This is a significant, separately identifiable problem that was evaluated and managed on the same day as the wellness exam Will send antibiotic Stressed importance of getting appointment with dentist to fully evaluate her dental concerns and treat appropriately to avoid long-term problems. Breast cancer screening by mammogram 04/19/2019 Assessment & Plan (09/05/2022 11:06 PM CDT): Mammogram order provided Assessment & Plan (07/20/2020 7:50 PM CDT): Mammogram order provided Assessment & Plan (04/19/2019 8:01 PM ENTRY LEVEL MARKETING ASSISTANT): Mammogram order provided Hyperglycemia 04/19/2019 Assessment & [...] diabetes. Assessment & Plan (05/23/2022 10:41 PM ENTRY LEVEL MARKETING ASSISTANT): Check labs Assessment & Plan (07/20/2020 7:49 [...] diabetes. Assessment & Plan (04/19/2019 10:01 AM ENTRY LEVEL MARKETING ASSISTANT): This is a significant, separately identifiable problem [...] [facility] Encouraged counseling---provided list of local counselors. Encouraged to make appt with psychaitrist now===if unable to get in provided new names of providers in the local area since transportation is a problem. Assessment & Plan (04/19/2019 8:00 PM ENTRY LEVEL MARKETING ASSISTANT): Continue per psychiatrist. Assessment & Plan (03/17/2019 3:24 PM ENTRY LEVEL MARKETING ASSISTANT): Managed by psychiatrist Cigarette smoker 03/17/2019 Assessment & Plan (01/25/2021 3:25 PM CDT): Encouraged smoking cessation. Discussed 3 minutes. Reviewed options for assistance with cessation. Reviewed termite control representative sequela associated with smoking. Pt declines assistance at this time but may contact the office at anytime for further help as they desire. Assessment & Plan (12/03/2019 11:03 PM CDT): Encouraged smoking cessation. Discussed 3 minutes. Reviewed options for assistance with cessation. Reviewed long-term sequela associated with smoking. Pt declines assistance at this time but may contact the office at anytime for further help as they desire. Assessment & Plan (08/09/2019 12:28 PM CDT): Encouraged smoking cessation. Discussed 3 minutes. Reviewed options for assistance with cessation. Reviewed long-term sequela associated with smoking. Pt declines assistance at this time but may contact the office at anytime for further help as they desire. Assessment & Plan (04/19/2019 8:01 PM ENTRY LEVEL MARKETING ASSISTANT): Encouraged smoking cessation. Discussed 3 minutes. Reviewed options for assistance with cessation. Reviewed termite control representative sequela associated with smoking. Pt declines assistance at this time but may contact the office at anytime for further help as they desire. Assessment & Plan (03/17/2019 3:25 PM ENTRY LEVEL MARKETING ASSISTANT): Encouraged smoking cessation. Discussed 3 minutes. Reviewed options for assistance with cessation. Reviewed termite control representative sequela associated with smoking. Pt declines assistance at this time but may contact the office at anytime for further help as they desire. Acquired hypothyroidism 03/17/2019 Assessment & Plan (10/10/2022 10:27 AM CDT): Continue levothyroxine. Monitor labs. Assessment & Plan (07/24/2022 4:18 PM CDT): Continue levothyroxine. Monitor labs. Continue levothyroxine. Assessment & Plan (05/23/2022 10:41 PM ENTRY LEVEL MARKETING ASSISTANT): Continue levothyroxine. Needs to get labs done to know that we have the dose correct. Assessment & Plan (01/25/2021 3:22 PM CDT): Continue levothyroxine. Monitor labs. Assessment & Plan (07/20/2020 7:49 PM CDT): Continue levothyroxine. Assessment & Plan (12/03/2019 11:01 PM CDT): Recheck labs as TSH was suppressed. Currently on levothyroxine 175mcg. Assessment & Plan (04/19/2019 10:00 AM ENTRY LEVEL MARKETING ASSISTANT): Check labs. On Levothyroxine 175mcg Assessment & Plan (03/17/2019 3:24 PM ENTRY LEVEL MARKETING ASSISTANT): Refilled enough levothyroxine until her next visit. [...] 20 Assessment & Plan (04/19/2019 9:25 AM ENTRY LEVEL MARKETING ASSISTANT): Weight/BMI is in healthy range. Continue healthy lifestyle to maintain. Lipid screening 04/19/2019 08/09/2019 Assessment & Plan (04/19/2019 8:01 PM ENTRY LEVEL MARKETING ASSISTANT): Check labs Other fatigue 04/19/2019 08/09/2019 Assessment & Plan (04/19/2019 8:02 PM ENTRY LEVEL MARKETING ASSISTANT): Probably multifactorial. Check labs and followup to re-evaluate Annual physical exam 04/19/2019 020 Assessment & Plan (04/19/2019 7:50 PM ENTRY LEVEL MARKETING ASSISTANT): Encouraged healthy lifestyle, good nutrition and exercise. Encouraged Calcium and Vitamin D and weight bearing exercise for bone health. Reviewed immunizations Reviewed age appropirate screenings. Dysuria 03/17/2019 04/19/2019 Assessment & Plan (03/17/2019 3:27 PM ENTRY LEVEL MARKETING ASSISTANT): Instructed her to go to the ER if she truly is unable to urinate for more than 8 hours. Dip is consistent with UTI. Will send Bactrim 1 tab p.o. b.i.d. for treatment and if symptoms worsen or do not improve she is to follow up immediately. BMI 27.0-27.9,adult 03/16/2019 04/19/20 19 Assessment & Plan (03/16/2019 12:19 PM ENTRY LEVEL MARKETING ASSISTANT): Weight/BMI is in healthy range. Continue healthy lifestyle to maintain. Encounters Date Type Department Care Team Description 10/09/2024 Telephone [facility] [address] [place] [address] Stacia Jones PA from Last 3 Months Immunizations Immunization Administration Dates Next Due Influenza, Unspecified 06/02/2022(Deferr ed: Patient Refused),06/02/2021(Deferred: Patient Refused),01/31/2020(Deferred: Patient Refused),01/30/2018(Deferred: Patient Refused) Td, adsorbed 09/12/2001 Family History Medical History Relation Name Comments Heart disease Father Stroke Father Diabetes Mother Hypertension Mother Stroke Mother Thyroid disease Mother Relation Name Status Comments Father Mother Social History Tobacco Use Types Packs/Day Years [...] on file Legal Sex Female 5:50 PM ENTRY LEVEL MARKETING ASSISTANT Gender Identity Not on file Sexual Orientation Not on file Occupation Industry Job Start Date Job End Date unemployed Not on file Not on file Not on file Obstetrics History Last Filed Vital Signs Vital Sign Reading [...] 07/25/2023 5:19 PM CDT Plan of Treatment Health Maintenance Due Date Last Done Comments Breast Cancer Screening-Mammogram 1971 Cervical Cancer Screening 1971 Colon Cancer Screening-Colonoscopy 1971 Hepatitis C Screening 1971 Hepatitis B Screening 1989 Pneumococcal vaccine <65 (1 of 2 - PCV) 1990 DTaP/Tdap/Td Vaccine (1 - Tdap) 09/13/2001 2 Zoster Vaccine (1 of 2) 2021 Depression Screening 05/13/2023 05/13/2022, 07/01/2020, 12/03/2019, Additional history exists Regular Well Visit/Exam 18-64 07/14/2023, 07/01/2020, 04/19/2019 Influenza Vaccine Discontinued Insurance [facility] Care Teams Product Development Chemist Relationship Specialty Start Date End Date Stacia Jones PA [address] [facility] [address] [place], [place] [id number] PCP - General Internal Medicine 03/16/19
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
--- OUTSIDE RECORDS SUMMARY | 2024-11-24 04:11 | XMS_ITS ---
Author Organization [facility] Address [address] [place] [address] Care Team Providers Care Interior Surface Insulation Worker Name Role Phone Mackenzie Fernandez Primary Care Provider REASON FOR VISIT [facility] hosp f/u Requires 40 minutes Encounters Encounter Location Date Provider Diagnosis [address] [place] [address] 02/14/2024 Mackenzie Fernandez Plan Of Treatment No Information Progress Notes * Guillermina NEGRODOB:[birth year] (54 yo F)Acc No.[id number]:02/14/2024 UNLOCKED PROGRESS NOTE Patient: Guillermina PRESCOTT Provider: Michell Fernandez :1970 A ge:53 Y S ex:Female Date:02/14/2024 Address:[id number] [place], [place] [id number] Subjective: * Chief Complaints: * 1 . [facility] hosp f/u Requires 40 minutes. * Medical History: Objective: * Vitals: Assessment: Plan: * Treatment: * * Electronic signature of Mackenzie Fernandez MD, [id number] on 11/24/2024 at 04:10 AM CDT Sign off status: Pending * Provider: Michell Fernandez Date: Generated for Cory de leon/Mitra/Isreal on: 0 11/24/2024 04:10 AM CDT
--- NOTE | 2024-11-24 04:28 | PC.NURSE ---
pt states i dont want that shot, why don't you let us sleep. When asked who is us pt refused to amswer
[2024-11-24 04:31] LABS: Glucose Urine UA Negative (Negative); Leukocyte Esterase Ur 3+ LEU/UL (Negative); Nitrate Urine Positive (Negative)
[2024-11-24 04:33] LABS: Cannabinoid Screen Urine Negative (Negative)
[2024-11-24 04:44] LABS: Add Urine Microscopic? YES; Appearance Urine Cloudy (Clear); Specific Grav Ur 1.008 (1.001-1.035)
[2024-11-24 04:51] LABS: Non Pathogenic Casts 0-2
--- NOTE | 2024-11-24 05:32 | PC.NURSE ---
Crisis notified of pt. Pt med mireille per Dr Han.
[2024-11-24] MEDS: CEPHALEXIN 500 MG CAPSULE PO (06:01)
--- NOTE | 2024-11-24 07:11 | PC.NURSE ---
Crisis at bedside
--- NOTE | 2024-11-24 07:20 | PC.NURSE ---
crisis at bedside at this time
--- NOTE | 2024-11-24 07:46 | PC.NURSE ---
Spoke with Colin [facility]orman [facility] about patient- they received the chart and will evaluate and contact us with any information
--- NOTE | 2024-11-24 08:13 | PC.NURSE ---
Spoke with Colin at [facility] at 0812 - he stated that Dr Sage is an accepting doctor and they will call back with a room assignment and report phone number. Colin did state that he wanted to make sure that the patient understood that she would have a roomate and the patient stated that she would be okay with that- that she wants to go into [facility] and doesn't have a choice whether she has a roomate or not. patient denies any suicidal or homicidal thoughts, is calm and resting. breakfast tray ordered
--- NOTE | 2024-11-24 09:18 | PC.NURSE ---
Patient needed a paper script to go with her so she was able to get her keflex at [facility] prescription provided in transfer packet.
== END 2024-11-24 10:01 ==
PROVIDERS: Emergency Provider Student in an Organized Health Care Education/Training Program; PCP Physician Assistant
DX: R45.851 Suicidal ideations (principal); N30.00 Acute cystitis without hematuria; Z11.52 Encounter for screening for COVID-19; D64.9 Anemia, unspecified
CPT/HCPCS: 36415; 80053; 80307; 81001; 81025; 82077; 83880; 84439; 84443; 84480; 84481; 85025; 87635; 93005; 99285; A9270